=== PATIENT | male | born 2000 | race Caucasian/White ===

== ENCOUNTER 2022-01-11 18:34 | Emergency (ER) | payer SELFPAY ==
[2022-01-11 18:49] VITALS: BP 151/93; PULSE 75; RESP 18; TEMP 36.8; O2SAT 98; BMI 29.5
--- NOTE | 2022-01-11 19:15 | ED_ITS ---
HPI - Abdominal Pain General: Chief Complaint: Abdominal Pain Stated Complaint: ABD Pain Time Seen by Provider: 01/11/22 18:40 Source: patient Mode of arrival: ambulatory Limitations: no limitations History of Present Illness: 21-year-old male states he been having epigastric abdominal pain over the last day. He states he eats a lot of spicy foods to having a severe burning pain in his abdomen he has had a history of reflux states his pain was much worse he states currently an 8 out of 10 he had some nausea no vomiting no diarrhea denies any fevers. Associated Symptoms: Reports nausea; Denies chills, dysuria and fever(s) Review of Systems Const: Denies: fever(s), chills, body aches or change in appetite Eyes: Denies: blurry vision or eye discomfort ENMT: Denies: throat pain or dental pain Card: Denies: chest pain Resp: Denies: dyspnea GI: Reports: abdominal pain and nausea : Denies: dysuria Musc: Denies: neck pain or back pain Skin/Breast: Denies: rash Neuro: Denies: headache(s) Psych: Denies: depression Ananda/Lymph: Denies: easy bruising All/Imm: Denies: urticaria Physical Exam Const: COMMON NORMALS: no acute distress, patient oriented x3 and healthy appearing HENMT: COMMON NORMALS: normocephalic and atraumatic HEAD & SCALP: normo cephalic and atraumatic Eye: COMMON NORMALS: Equal, round and reactive pupils present and EOMs intact bilaterally PUPIL: Yes Equal, round and reactive pupils present Neck/C-Spine: COMMON NORMALS: full ROM and supple Chest: COMMONS NORMALS: normal inspection of the chest and normal palpation of entire chest wall Resp: COMMON NORMALS: normal respiratory effort, No retractions, No use of accessory muscles and clear to auscultation bilaterally AUSCULTATION: clear to auscultation bilaterally Cardio: COMMON NORMALS: regular rate, regular rhythm and No murmurs present (Cardio) RATE: regular rate RHYTHM: regular rhythm GI: COMMON NORMALS: Normal to inspection, nondistended, normoactive bowel sounds present, Soft to palpation and no masses PALPATION: Yes Soft to palpation OTHER: epigastric tenderness Extremity: COMMON NORMALS: normal to inspection and full ROM Neuro: COMMON NORMALS: patient oriented x3, moves all extremities and no focal motor deficits Psych: COMMON NORMALS: mental status grossly normal, Normal thought process present and cooperative THOUGHT PROCESS: Normal thought process present Skin: COMMON NORMALS: no rashes or lesions noted and no wounds GENERAL SKIN EXAM: no rashes or lesions noted Course Vital Signs: Vital signs: Vital Signs Temperature 98.2 F 01/11/22 18:49 Pulse Rate 75 01/11/22 18:49 Respiratory Rate 18 01/11/22 18:49 Blood Pressure 151/93 01/11/22 18:49 Pulse Oximetry 98 01/11/22 18:49 MDM - Abdominal Pain Medical Decision Making Patient presents here with epigastric pain is likely gastritis. He felt improved here after GI cocktail he is to avoid spicy foods along with caffeine and alcohol we will get him follow-up with a surgeon started on Protonix. Patient is also having some penile discharge he states that she will nature likely gonorrhea chlamydia patient given azithromycin Rocephin here and will start him on doxycycline urinalysis did show bacteria. Lab Data : 01/11/22 19:25 01/11/22 19:25 Labs/Radiology: Radiology Impressions Abdomen/Pelvis CT 01/11/22 19:18 IMPRESSION: 1. Subtly abnormal appearance of the small bowel. Possible mild diffuse enteritis. No sign of obstruction. 2. Mild splenic enlargement. Laboratory Results WBC 10.0 10^3/uL (4.0-10.0) 01/11/22 19:25 RBC 5.04 10^6/uL (4.1-5.3) 01/11/22 19:25 Hgb 14.4 g/dL (11.7-16.6) 01/11/22 19:25 Hct 41.6 % (42.0-52.0) L 01/11/22 19:25 MCV 82.5 fl (80-94) 01/11/22 19:25 MCH 28.6 pg (28.0-34.0) 01/11/22 19:25 MCHC 34.6 g/dL (30.0-36.0) 01/11/22 19:25 RDW 13.2 % (12.1-15.1) 01/11/22 19:25 Plt Count 234 10^3/cmm (130-400) 01/11/22 19:25 MPV 9.3 fL (7.4-10.4) 01/11/22 19:25 Neut % (Auto) 70.9 % 01/11/22 19:25 Lymph % (Auto) 16.5 % 01/11/22 19:25 [place] % (Auto) 10.3 % 01/11/22 19:25 Eos % (Auto) 1.6 % 01/11/22 19:25 Baso % (Auto) 0.3 % 01/11/22:25 Neut # (Auto) 7.12 10^3/uL (1.8-7.7) 01/11/22 19: Lymph # (Auto) 1.7 10^3/uL (0.8-4.8) 01/11/22: [place] # (Auto) 1.0 10^3/uL (0.2-0.9) H 01/11/22: Eos # (Auto) 0.2 10^3/uL (0.0-0.8) 01/11/22: Baso # (Auto) 0.0 10^3/uL (0.0-0.1) 01/11/22 19: Nucleated RBC % (auto) 0 % 01/11/22 19: Nucleated RBCs # 0.0 /100WBC 01/11/22 19:25 Sodium 135 mmol/L (136-145) L 01/11/22 19:25 Potassium 3.7 mmol/L (3.5-5.1) 01/11/22 19: Chloride 101 mmol/L (98-107) 01/11/22 19:25 Carbon Dioxide 24 mmol/L (22-29) 01/11/22 19:25 Anion Gap 13.7 (5-19) 01/11/22 19:25 BUN 15 mg/dL (6-20) 01/11/22 19:25 Creatinine 0.8 mg/dL (0.7-1.2) 01/11/22 19:25 GFR Calculation 119.8 mL/min (90-130) 01/11/22 19:25 Glucose 89 mg/dL (65-115) 01/11/22 19:25 Calculated Osmolality 280 mOsm/kg (285-295) L 01/11/22 19:25 Calcium 10.1 mg/dL (8.5-10.5) 01/11/22 19:25 Total Bilirubin 0.4 mg/dL (0.15-1.2) 01/11/22 19:25 AST 21 U/L (0-40) 01/11/22 19:25 ALT 16 U/L (0-41) 01/11/22 19:25 Alkaline Phosphatase 47 IU/L (40-130) 01/11/22 19:25 Total Protein 8.3 g/dL (6.6-8.7) 01/11/22 19:25 Albumin 4.5 g/dL (3.5-5.2) 01/11/22 19:25 Globulin 3.8 g/dL (1.3-4.6) 01/11/22 19:25 Lipase 12 U/L (13-60) L 01/11/22 19:25 Urine Color Yellow (Yellow) 01/11/22 20:10 Urine Appearance Hazy (CLEAR) A 01/11/22 20:10 Urine pH 5 (5-7) 01/11/22 20:10 Ur Specific [place] 1.020 (1.005-1.030) 01/11/22 20:10 Urine Protein Trace (Negative) 01/11/22 20:10 Urine Glucose (UA) Norm (Normal) 01/11/22 20:10 Urine Ketones 2+ (Negative) H 01/11/22 20:10 Urine Blood Trace (Negative) H 01/11/22 20:10 Urine Nitrate Negative (Negative) 01/11/22 20:10 Urine Bilirubin Neg (Negative) 01/11/22 20:10 Urine Urobilinogen Norm mg/dL (Negative) 01/11/22 20:10 Ur Leukocyte Esterase 2+ (Negative) H 01/11/22 20:10 Urine RBC 0-4 /hpf (0-2) H 01/11/22 20:10 Urine WBC Too numerous to cnt /hpf (0-5) H 01/11/22 20:10 Ur Squamous Epith Cells 0-4 /hpf (0-5) H 01/11/22 20:10 Amorphous Sediment Not Reportable 01/11/22 20:10 Urine Bacteria Trace /hpf (NONE) 01/11/22 20:10 Urine Mucus Trace /hpf 01/11/22 20:10 Discharge Plan Discharge Patient Disposition: Home Clinical Impression: Penile discharge Abdominal pain Qualifiers: Abdominal location: epigastric Qualified Code(s): R10.13 - Epigastric pain Condition: Stable Prescriptions: New Protonix 40 mg tablet,delayed release (DR/EC) 40 mg PO DAILY Qty: 60 0RF ondansetron 4 mg tablet,disintegrating 4 mg PO Q6H PRN (Reason: nausea and vomiting) Qty: 14 0RF doxycycline hyclate 100 mg tablet 100 mg PO BID 7 Days Qty: 14 0RF Discharge Orders: Discharge ED (Routine); Ordered 01/11/22 Ordered By: Lyle Cotton Referrals: Chevy Amaral MD [Physician] - 1-3 days Discharge Diet: Low Cholesterol Discharge Activity: Resume usual activity Patient Instructions: Abdominal Pain (ED) Coding Level of Care Code ED [employer] Operator for Chg Fwd Exam Comprehensive
--- NOTE | 2022-01-11 19:18 | CTR_ITS ---
PROCEDURE INFORMATION: Exam: CT Abdomen And Pelvis With Contrast Exam date and time: 01/11/2022 7:43 PM Age: 21 years old Clinical indication: Abdominal pain; Acute; Prior surgery; Surgery date: 6+ months; Surgery type: Appy; Additional info: Abd pain TECHNIQUE: Imaging protocol: Computed tomography of the abdomen and pelvis with contrast. Radiation optimization: All CT scans at this facility use at least one of these dose optimization techniques: automated exposure control; mA and/or kV adjustment per patient size (includes targeted exams where dose is matched to clinical indication); or iterative reconstruction. Contrast material: OMNI 300; Contrast volume: 95 ml; Contrast route: INTRAVENOUS (IV); COMPARISON: No relevant prior studies available. RADIATION DOSE METRICS: Total DLP (mGy-cm): 1649.02 FINDINGS: Lungs: Lung bases are clear. Diaphragm: There is a small sliding-type hiatal hernia. Liver: The liver is normal. Gallbladder and bile ducts: The gallbladder is normal. There is no biliary dilation. Pancreas: The pancreas is unremarkable. The Spleen: The spleen is mildly enlarged. Adrenal glands: The adrenal glands are unremarkable. Kidneys and ureters: The kidneys are unremarkable. No hydronephrosis or stones. No ureteral dilation. Stomach and bowel: The stomach is decompressed, preventing meaningful evaluation of wall thickness. There is mild wall thickening and luminal decompression in the proximal jejunum. The distal ileum is mildly distended and fluid and gas filled. There is no gaby small bowel dilation to suggest obstruction. There is no significant perienteric edema. The ascending colon is decompressed. The sigmoid is decompressed. There is no sign of colonic inflammation. Appendix: The appendix is absent. Intraperitoneal space: There is no free air or significant intraperitoneal free fluid. Vasculature: The abdominal aorta is normal. There is no aneurysm or dissection. Lymph nodes: There is no lymphadenopathy in the retroperitoneum, mesentery, pelvis or inguinal regions. Urinary bladder: The urinary bladder is unremarkable. Reproductive: The prostate and seminal vesicles are unremarkable. Bones/joints: Bones are unremarkable. Soft tissues: The abdominal wall is intact. CT/CT abdomen pelvis w con* [id number] IMPRESSION: 1. Subtly abnormal appearance of the small bowel. Possible mild diffuse enteritis. No sign of obstruction. 2. Mild splenic enlargement.
[2022-01-11 19:35] LABS: Basophils % 0.3 %; Eosinophils # 0.2 10^3/uL (0.0-0.8); Eosinophils % 1.6 %; Hematocrit 41.6 % (42.0-52.0); Hemoglobin 14.4 g/dL (11.7-16.6); Lymphocytes # 1.7 10^3/uL (0.8-4.8); Lymphocytes % 16.5 %; Mean Corpuscular HGB Conc 34.6 g/dL (30.0-36.0); Mean Corpuscular Hemoglobin 28.6 pg (28.0-34.0); Mean Corpuscular Volume 82.5 fl (80-94); Mean Platelet Volume 9.3 fL (7.4-10.4); Monocytes % 10.3 %; Neutrophils # 7.12 10^3/uL (1.8-7.7); Neutrophils % 70.9 %; Nucleated Red Blood Cells % 0 %; Platelet Count 234 10^3/cmm (130-400); Red Blood Count 5.04 10^6/uL (4.1-5.3); Red Cell Distribution Width 13.2 % (12.1-15.1)
[2022-01-11] MEDS: lidocaine 2% viscous 15 ML, aluminum-mag hydrox-simethicon 30 ML, sucralfate oral liq 1 GM PO (19:41)
[2022-01-11] MEDS: ondansetron 2 mg/ML SDV 2 mL 4 MG IVP (19:41)
[2022-01-11] MEDS: iohexol 300 mg/mL 100 mL Btl IV (19:43)
[2022-01-11 19:56] LABS: Alanine Aminotransferase 16 U/L (0-41); Albumin Level 4.5 g/dL (3.5-5.2); Alkaline Phosphatase 47 IU/L (40-130); Blood Urea Nitrogen 15 mg/dL (6-20); Calcium 10.1 mg/dL (8.5-10.5); Carbon Dioxide 24 mmol/L (22-29); Chloride 101 mmol/L (98-107); Globulin 3.8 g/dL (1.3-4.6); Glomerular Filtration Rate 119.8 mL/min (90-130); Glucose 89 mg/dL (65-115); Lipase 12 U/L (13-60); Osmolality Calculated 280 mOsm/kg (285-295); Sodium 135 mmol/L (136-145); Total Bilirubin 0.4 mg/dL (0.15-1.2); Total Protein 8.3 g/dL (6.6-8.7)
[2022-01-11 20:08] LABS: Anion Gap 13.7 (5-19); Aspartate Amino Transferase 21 U/L (0-40); Potassium 3.7 mmol/L (3.5-5.1)
[2022-01-11 20:31] LABS: Add Urine Culture? Yes; Add Urine Microscopic? YES; Bacteria Urine TRACE /hpf; Bilirubin Urine Neg (Negative); Blood Urine Trace (Negative); Glucose Urine UA Norm (Normal); Ketones Urine 2+ (Negative); Leukocyte Esterase Urine 2+ (Negative); Mucus Urine TRACE /hpf; Nitrate Urine Negative (Negative); Protein Urine Trace (Negative); RBC Urine 0-4 /hpf (0-2); Squamous Epithelial Cell Urine 0-4 /hpf (0-5); Urine Appearance Hazy (CLEAR); Urine Color Yellow (Yellow); Urobilinogen Urine Norm (Negative); WBC Urine TOO NUMEROUS TO CNT /hpf (0-5); pH Urine 5 (5-7)
[2022-01-11] MEDS: azithromycin 250 mg Tablet 1000 MG PO (21:40)
--- NOTE | 2022-01-12 11:27 | DCPLANNER ---
Addendum entered by Ruthann Cruz 01/25/22 15:25: communications manager called the office of Dr. Amaral, spoke with Calista, to confirm that a follow up appointment had been scheduled for patient. communications manager was told that clinic has called patient and left a voicemail for patient to call clinic to schedule a followup appointment if they would like to be seen. Clinic is waiting for patient to call clinic. Original Note: communications manager had message to schedule a follow up appointment for patient with Dr. Amaral. communications manager faxed patients information to the office of Dr. Amaral. Patients information will reviewed, clinic will call patient with appointment information.
== END 2022-01-11 22:35 | disposition home or self-care (01) ==
PROVIDERS: Emergency Provider Emergency Medicine
DX: R10.13 Epigastric pain (principal); R36.9 Urethral discharge, unspecified
CPT/HCPCS: 74177; 80053; 81001; 83690; 85025; 87086; 87491; 87591; 96374; 99283; J0696; J2405; Q0144; Q9967